=== PATIENT | female | born 1960 | race Caucasian/White ===

== ENCOUNTER → 2022-02-25 | Outpatient (CLI) | payer BC ==
[~2022-02-25] MED LIST: FEXPSEER; FLUT.05NI; HYDACE5; HYDCHL25; INDO50; OXYC5; PROM25 PO
== END | disposition home or self-care (01) ==
LOC: LAB SHORT 14:44 → PLD 14:44
DX: M79.89 Other specified soft tissue disorders (principal)
CPT/HCPCS: 88304